=== PATIENT | female | born 2000 | race Caucasian/White ===

== ENCOUNTER 2020-05-22 20:01 | Inpatient (IN) | payer OTHER, MEDICAID ==
[~2020-05-22] VITALS: Ht 167.6 cm; Wt 69.9 kg
--- NOTE | ~2020-05-22 | CON ---
[address] [address] CONSULTATION Name: RAINER MENDES Room: [address] IN M.R.#: [id number] Admission: 05/22/20 Attend Phys: Shana Chow MD Discharge: Date of : 98 Report #: [id number] THIS REPORT FOR: cc: Frieda Black DNP, Mary E. DNP ~ Solo Kumar MD DATE OF SERVICE: 05/24/2020 REQUESTING PHYSICIAN: Dr. Morris. REASON FOR CONSULTATION: Rhabdomyolysis. HISTORY OF PRESENT ILLNESS: The patient is a 20-year-old female with medical history significant for alcoholism for the last year, depression, who presents to the hospital after some alcohol binge when she had lost short-term memory, was not sure what was going on. She was all covered in bruises, was found to be in acute kidney injury and rhabdomyolysis. MEDICATIONS: Prior to admission include lithium, Wellbutrin and Prozac. SOCIAL HISTORY: Positive for alcoholism. FAMILY HISTORY: Noncontributory. PAST MEDICAL HISTORY: As I mentioned earlier. REVIEW OF SYSTEMS: Review of systems is positive for ____ pain all over the body and depression. PHYSICAL EXAMINATION: GENERAL: She is awake, alert, oriented. VITAL SIGNS: Blood pressure 116/71, heart rate 82, afebrile. HEENT: Pupils are round. NECK: Supple. LUNGS: Clear. CARDIOVASCULAR: Regular rate. ABDOMEN: Soft. EXTREMITIES: Lower extremities, no edema. SKIN: Skin is covered, she has multiple bruises all over her body. LABORATORY DATA: Significant for creatinine of 1.3 down to 0.7 today. CPK was more than 6000. She had elevated AST and ALT. ASSESSMENT: [facility] [address] [place] [address] CONSULTATION Name: RAINER MENDES Room: [address] IN [facility]#: [id number] Admission: 05/22/20 Attend Phys: Shana Chow MD Discharge: Date of : 98 Report #: [id number] 1. Severe rhabdomyolysis, likely due to mechanical trauma. The patient now tells me that she probably fell several times from the stairs while she was visiting her friend. She was drinking alcohol at that time. 2. Acute kidney injury due to rhabdomyolysis. 3. Alcoholism. PLAN: Continue IV fluids. CPK, we will monitor her on daily basis. Room Designer her on necessity of stopping drinking alcohol. By: [id number] [id number] Kumar MD /nt
--- NOTE | ~2020-05-22 | CON ---
[address] [address] CONSULTATION Name: RAINER MENDES Room: [address] IN M.R.#: [id number] Admission: 05/22/20 Attend Phys: Shana Chow MD Discharge: Date of : 98 Report #: [id number] THIS REPORT FOR: cc: Frieda Black DNP, Mary E. DNP ~ Mary Fritz MD DATE OF SERVICE: 05/23/2020 REQUESTING PHYSICIAN: ANGEL Trinidad HISTORY OF PRESENT ILLNESS: This is a 20-year-old female who was brought to hospital after she had reported to her mom that she feels dizzy and not feeling good. She apparently was away, so the mom does not know all the history. When she presented to the mom, she had bruises in her face, lips and lower extremities. She had reported to the mother that she had felt from the steps. On presentation, she appears to have rhabdomyolysis. She also has transaminitis with AST and ALT in range of 1800 and 600. The patient's mother reports that she has been drinking alcohol. Also, she has bipolar mood disorder for which she takes lithium. Mother fears that she may have taken some overdose of lithium. PAST MEDICAL HISTORY: Significant for history of bipolar mood disorder and asthma. ALLERGIES: SIGNIFICANT FOR LAMICTAL. MEDICATIONS: Please refer to MAR. SOCIAL HISTORY: The patient's mother reports that she uses marijuana and drinks alcohol. The patient also has bipolar mood disorder and is on lithium. FAMILY HISTORY: Noncontributory. PHYSICAL EXAMINATION: NEUROLOGIC: The patient is sleepy and responds to painful stimuli. ABDOMEN: Soft, nontender and nondistended. LUNGS: Clear. CARDIOVASCULAR: Regular. LABORATORY DATA: Revealed sodium of 135, potassium 4.5, BUN is 31, creatinine is 1.3 and glucose is 100. AST is 1888, ALT is 666 and alkaline phosphatase is 77. Magnesium 2.8, calcium 9.2, total bilirubin is 1.1 and albumin [place] 4[place] [address] CONSULTATION Name: RAINER MENDES Room: [address] IN [facility].#: [id number] Admission: 05/22/20 Attend Phys: Shana Chow MD Discharge: Date of : 98 Report #: [id number] is 1.0. WBC is 14.9 with hemoglobin of 14.1 and platelet of 238. IMAGING: CT of the head was obtained. This appeared normal. ASSESSMENT AND PLAN: The patient with history of bipolar mood disorder, who presents with dizziness and feeling poorly. She appeared as she had a fall as she had reported that to the mother. She has multiple bruises in her chin, lips and lower extremities. It is quite possible that she may have been down for a while after her fall and this may have caused her rhabdomyolysis. Her transaminitis is most probably associated with combination of shock liver and rhabdomyolysis. We will order a GGT and continue following up hepatic function. At this time, all hepatic function is completely intact. I believe the patient's prognosis in reference to her liver issues is very good. Meanwhile, she should be well hydrated and monitored. We will make further recommendation based on laboratory finding. By: 1002 [id number] Fritz MD /nt
[~2020-05-22 20:01] MED LIST: AUGMENTIN 875-1 EACH PO; CORTISPORIN OTI10 ML OTIC; LATUDA40 MG PO; LITHIUM CARBON150 MG PO; PROZAC20 MG PO; REGLAN 5 MG TAB5 MG PO; RITALIN10 MG PO
[2020-05-22 20:13] VITALS: BP 127/77
[2020-05-22] MEDS ORDERED: WELLBUTRIN 100100 MG PO (20:20)
[2020-05-22 20:31] LABS: ICTOTEST (BILI CONFIRMATORY) Negative (Negative); URINE BILIRUBIN 1+ (Negative); URINE BLOOD 3+ (Negative); URINE CLARITY HAZY; URINE COLOR YELLOW; URINE GLUCOSE-RANDOM NEGATIVE (Negative); URINE KETONES 1+ (Negative); URINE LEUKOCYTES NEGATIVE (Negative); URINE NITRITE NEGATIVE (Negative); URINE PROTEIN 2+ (Negative); URINE SPECIFIC GRAVITY >= 1.030 (1.005-1.030); URINE UROBILINOGEN 0.2 E.U./dl (0.2-1.0)
[2020-05-22 20:39] LABS: AMP/METHAMP Negative (Negative); BARBITURATES Negative (Negative); BENZODIAZEPINES Negative (Negative); COCAINE Negative (Negative); METHADONE Negative (Negative); OPIATES Negative (Negative); PCP Negative (Negative); THC POSITIVE (Negative)
[2020-05-22 20:45] LABS: SQUAMOUS >10 Many /LPF (0-3)
[2020-05-22 20:46] LABS: URINE RBC 0-2 Rare /HPF (0-2); URINE WBC 0-5 Rare /HPF (0-5)
[2020-05-22 20:47] LABS: AMORPHOUS URATES Few /LPF (None Seen); BACTERIA 1-9 Few /HPF (None Seen); CASTS None Seen /LPF (None Seen)
[2020-05-22 20:53] LABS: HEMATOCRIT 42.5 % (37.0-47.0); HEMOGLOBIN 14.1 gm/dL (12.0-15.0); MCH 28.5 pg (26.0-34.0); MCHC 33.1 g/dL (28.0-37.0); MCV 86.1 fL (80.0-100.0); MPV 8.3 fl. (7.2-11.1); RBC 4.94 mil/uL (4.20-5.00); RDW-CV 14.1 % (10.5-14.5); WBC 15.2 thou/uL (4.0-11.0)
[2020-05-22 21:06] LABS: CALCIUM 9.2 mg/dL (8.5-10.1); CREATININE 1.3 mg/dL (0.6-1.3); POTASSIUM 4.5 mmol/L (3.5-5.1)
[2020-05-22 21:18] LABS: ACETAMINOPHEN < 2 ug/mL (10-30); ALCOHOL < 10 mg/dL (<10); SALICYLATE < 2.8 mg/dL (2.8-20.0)
[2020-05-22 21:22] LABS: ALBUMIN 4.1 g/dL (3.4-5.0); TOTAL BILIRUBIN 1.1 mg/dL (<0.1-1.0)
[2020-05-22 21:50] LABS: INFLUENZA A ANTIGEN Negative (Negative); INFLUENZA B ANTIGEN Negative (Negative)
[2020-05-22 22:25] LABS: HEMATOCRIT 43.3 % (37.0-47.0); HEMOGLOBIN 14.1 gm/dL (12.0-15.0); MCH 28.4 pg (26.0-34.0); MCHC 32.6 g/dL (28.0-37.0); NUCLEATED RBCS 0 /100WBC; PLATELET COUNT* 238 thou/uL (150-400); RBC 4.97 mil/uL (4.20-5.00); RDW-CV 14.3 % (10.5-14.5); WBC 14.9 thou/uL (4.0-11.0)
[2020-05-22 22:43] LABS: APTT 26.5 Seconds (25.0-31.3); PROTIME 10.4 Seconds (9.20-11.50)
[2020-05-22 23:27] LABS: ABSOLUTE LYMPHOCYTES 0.6 thou/uL (0.8-5.3); ABSOLUTE MONOCYTES 0.6 thou/uL (0.0-1.2); ABSOLUTE NEUTROPHILS 13.7 thou/uL (1.6-8.1); PLATELET ESTIMATE ADEQUATE
[2020-05-22 23:37] LABS: MAGNESIUM 2.8 mg/dL (1.8-2.4); PHOSPHORUS* 2.8 mg/dL (2.5-4.9); URIC ACID* 7.3 mg/dL (2.6-7.2)
[2020-05-23] VITALS (19 sets, daily range): BP systolic 111–132; BP diastolic 58–78
--- NOTE | 2020-05-23 07:47 | NUR ---
4352 ASSUMED CARE OF PATIENT. PLEASE SEE DOCUMENTED ASSESSMENT AND CIWA SCREENING. ASSISTED TO BSC FOR VOID OF BLOOD TINGED YELLOW URINE. PT STATES SHE HAD BEEN HAVING HER MENSES. PT DENIES PAIN
--- NOTE | 2020-05-23 08:20 | NUR ---
PATIENT STATES SHE HAS HAD HER FLUVACCINE THIS SEASON. ABLE TO SIGN FALL AGREEMENT.
[2020-05-23 11:33] LABS: CREATININE 0.9 mg/dL (0.6-1.3)
--- NOTE | 2020-05-23 18:18 | NUR ---
PT PROGRESSING TOWARDS GOALS. SAFETY MAINTAINED.HAS BEEN FEBRILE TODAY. PLACED ARCINIEGA ORDERED BUT PT C/O PAIN AND WANTED IT OUT. TAMPON REMOVED FROM VAGINA THAT PATIENT WAS NOT SURE HOW LONG IT HAD BEEN IN PLACE. APPETITE IMPROVING. CONSULTS NOTIFIED. CT OF ABDOMEN PENDING. MOTHER HAS BEEN PRESENT MOST OF DAY. GIVEN ATIVAN PO X 1 PER PT REQUEST, NOT FOR CIWA SCORE.
[2020-05-23 18:20] LABS: HEMATOCRIT 35.5 % (37.0-47.0); MCH 28.2 pg (26.0-34.0); MCHC 32.1 g/dL (28.0-37.0); MCV 87.7 fL (80.0-100.0); MPV 8.2 fl. (7.2-11.1); RBC 4.05 mil/uL (4.20-5.00)
[2020-05-23 18:30] LABS: HEMOGLOBIN 11.4 gm/dL (12.0-15.0)
[2020-05-23 18:38] LABS: ALBUMIN 2.6 g/dL (3.4-5.0); CREATININE 1.1 mg/dL (0.6-1.3); MAGNESIUM 2.1 mg/dL (1.8-2.4); PHOSPHORUS* 2.2 mg/dL (2.5-4.9); POTASSIUM 3.3 mmol/L (3.5-5.1); TOTAL BILIRUBIN 0.3 mg/dL (<0.1-1.0); TOTAL PROTEIN 5.7 g/dL (6.4-8.2)
[2020-05-23 22:00] LABS: CALCIUM 7.8 mg/dL (8.5-10.1); CREATININE 0.8 mg/dL (0.6-1.3); POTASSIUM 3.6 mmol/L (3.5-5.1)
[2020-05-24] VITALS (20 sets, daily range): BP systolic 109–138; BP diastolic 61–81
[2020-05-24 03:47] LABS: HEMATOCRIT 33.3 % (37.0-47.0); MCH 28.8 pg (26.0-34.0); MCHC 33.1 g/dL (28.0-37.0); MCV 86.8 fL (80.0-100.0); MPV 8.5 fl. (7.2-11.1); RBC 3.84 mil/uL (4.20-5.00); RDW-CV 13.8 % (10.5-14.5)
[2020-05-24 04:00] LABS: PROTIME 10.4 Seconds (9.20-11.50)
[2020-05-24 04:08] LABS: ALBUMIN 2.3 g/dL (3.4-5.0); CALCIUM 7.4 mg/dL (8.5-10.1); CREATININE 0.7 mg/dL (0.6-1.3); MAGNESIUM 1.8 mg/dL (1.8-2.4); POTASSIUM 3.7 mmol/L (3.5-5.1); TOTAL BILIRUBIN 0.3 mg/dL (<0.1-1.0); TOTAL PROTEIN 5.4 g/dL (6.4-8.2)
--- NOTE | 2020-05-24 09:54 | NUR ---
5226 ASSUMED CARE OF PATIENT. PLEASE SEE DOCUMENTED ASSESSMENT. PT IS NPO FOR ABDOMINAL ULTRASOUND. ASSISTED TO COMMODE AND BATHED.
[2020-05-24 10:13] LABS: ALBUMIN 2.4 g/dL (3.4-5.0); DIRECT BILIRUBIN 0.1 mg/dL (<0.1-0.3); TOTAL BILIRUBIN 0.3 mg/dL (<0.1-1.0)
--- NOTE | 2020-05-24 11:18 | CON ---
[address] [address] CONSULTATION Name: RAINER MENDES Room: [address] IN M.R.#: [id number] Admission: 05/22/20 Attend Phys: Shana Chow MD Discharge: Date of : 98 Report #: [id number] THIS REPORT FOR: cc: Frieda Black DNP, Mary E. DNP ~ Andrade Tam MD [facility] DATE OF SERVICE: 05/24/2020 CARDIOLOGY CONSULTATION HISTORY OF PRESENT ILLNESS: The patient is a 20-year-old white female who I was asked to see in the hospital today because of abnormal troponin. The patient has no previous history of heart disease. She stays fairly active. She has a history of manic depressive illness and has been hospitalized in the past. Recently, she has been falling or losing her balance. She complains of lightheadedness. Her parents finally brought her to the Emergency Room 2 days ago. She has been confused. She has had a previous suicide attempt in the past. The family finally brought her to the Emergency Room for further evaluation and treatment. She is noted to have an abnormal troponin. I was asked to see her for further evaluation and treatment. She denied any seizure activity. Denied any vomiting, diarrhea, or blood in her stool. PAST MEDICAL HISTORY: She is a G0, last menstrual period is last week. She has an IUD in place. No history of hypertension, diabetes, hyperlipidemia. MEDICATIONS: Include Prozac, Wellbutrin. ALLERGIES: She has no known drug allergies. FAMILY HISTORY: Negative for heart disease. SOCIAL HISTORY: She is single, lives with her parents in [place]. 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 She does abuse alcohol. Smokes marijuana occasionally. REVIEW OF SYSTEMS: No history of stroke. She has a history of asthma, uses inhaler. No history of liver disease, kidney disease, bleeding, chronic skin condition. She has manic depressive illness. She has been hospitalized in the past. PHYSICAL EXAMINATION: GENERAL: Reveals a young white female, lying in bed. She appeared in no distress. VITAL SIGNS: She had a blood pressure 110/68, pulse is 90. [place] [address] CONSULTATION Name: RAINER MENDES Room: [address]#: [id number] Admission: 05/22/20 Attend Phys: Shana Chow MD Discharge: Date of : 98 Report #: [id number] HEENT: She was anicteric. Conjunctivae pink. Mucous membranes moist. NECK: Veins nondistended. Neck supple. CHEST: Clear to auscultation. CARDIOVASCULAR: Regular rate and rhythm without murmur. ABDOMEN: Soft. EXTREMITIES: Had no edema. Dorsalis pedis pulse 3+ bilaterally. SKIN: Cool and dry. NEUROLOGIC: Nonfocal. RADIOLOGICAL DATA: Her ECG on admission showed a sinus rhythm, no ST or T-wave change noted. Her workup in the Emergency Room, she had a portable chest x-ray that showed normal heart size, clear lung saldana. She had a CT scan of the head that was unremarkable. LABORATORY WORK: Sodium 141, creatinine 0.7, SGOT 679, SGPT 360, bilirubin 2.3. Troponin 0.15. TSH 0.9. Her urine drug screen positive for marijuana. White blood cell count 10.0, hematocrit 33. Her COVID antigen stat test was negative. Urinalysis was negative for leukocytes. IMPRESSION AND RECOMMENDATIONS: 1. Borderline troponin. No evidence of acute myocardial infarction. Recommend no further cardiac evaluation. 2. Manic depressive illness. 3. Falling. Possibly related to alcohol. 4. History of alcohol abuse. Recommend no cardiac evaluation. Cardiac status appears stable. I will sign off at this time. <ELECTRONICALLY SIGNED> By: Andrade Tam MD, FACC 05/24/20 1118 0843 [id number] Tam MD, FACC /nt
--- NOTE | 2020-05-24 17:18 | NUR ---
PATIENT HAS MADE SOME PROGRESS WITH HER RHABDOMYOLYSIS BUT HER MENTAL STATUS HAS DETERIORATED. NOW TELE STATUS WITH SITTER FOR SI PRECAUTIONS. PATIENT PULLED OUT IV'S TODAY AFTER MOTHER LEFT. ABLE TO RESTART IV WITH HER CONSENT. PT IS ADAMANT THAT SHE WILL NOT GO TO INPATIENT PSYCH OR ALCOHOL REHAB. AFFIDAVIT DONE BY MOTHER WHICH IS ON PT CHART.AFEBRILE.
--- NOTE | 2020-05-24 18:48 | NUR ---
PATIENT TO MOVE TO ROOM 207. PATIENT'S MOTHER NOTIFIED OF PATIENT MOVING TO ROOM 207.
--- NOTE | 2020-05-24 21:47 | NUR ---
CALLED TO PT'S ROOM PER PT REQUEST. PT DEMANDING TO USE TO PHONE, PT INFORMED IT IS AGAIST POLICY FOR PT TO BE ALLOWED TO USE THE PHONE AFTER SPEAKING WITH THE CHARGE NURSE. PT HAD PULLED OUT HER SALINE LOCK, AND REFUSED TO ALLOW RN TO BANDADGE IV SITE. SMALL AMOUNT OF BLOOD PRESENT, DOES NOT APPEAR TO BE ACTIVLEY BLEEDING. REINFORCMENT OF POLICIES SURROUNDING VISITATION, PHONE USE, AND THE POSSIBLE IMPLICATIONS OF ESCILATING BEHAVIOR. PT RESPONDED WITH, "YOU'RE A ABAD." OFFICER MICAH IN THE ROOM DURING OUR CONVERSATION, AND WAS ABLE TO DE-ESCILATE PT'S AFFECT BY REINFORCING POLICY TEACHING FOR PT'S IN HER STATUS. SPOKE WITH CHARGE NURSE ABOUT CONTENT OF OUR CONVERSATION. PT AGREED TO FOLLOW THE POLICY. INSTRUCTED CHARGE NURSE TO NOTIFY THIS SATELLITE SPECIALIST IF FURTHER PROBLEMS DEVELOPED.
[2020-05-25] VITALS: BP 128/71
[2020-05-25 04:11] LABS: HEMATOCRIT 33.4 % (37.0-47.0); HEMOGLOBIN 11.1 gm/dL (12.0-15.0); MCH 28.6 pg (26.0-34.0); MCHC 33.1 g/dL (28.0-37.0); MCV 86.5 fL (80.0-100.0); MPV 8.3 fl. (7.2-11.1); RBC 3.86 mil/uL (4.20-5.00); WBC 10.1 thou/uL (4.0-11.0)
[2020-05-25 04:54] LABS: ALBUMIN 2.3 g/dL (3.4-5.0); CALCIUM 7.8 mg/dL (8.5-10.1); CREATININE 0.7 mg/dL (0.6-1.3); MAGNESIUM 1.4 mg/dL (1.8-2.4); POTASSIUM 3.3 mmol/L (3.5-5.1); TOTAL BILIRUBIN 0.3 mg/dL (<0.1-1.0); TOTAL PROTEIN 5.5 g/dL (6.4-8.2)
[2020-05-25 05:33] VITALS: BP 138/77
--- NOTE | 2020-05-25 06:59 | NUR ---
ASSESSMENT DOCUMENTED. MEDS GIVEN PER E-MAR. IV PATENT, FLUIDS INFUSING. PT BECAME VERY AGGITATED THIS SHIFT. STATING "I AM MY OWN PERSON AND I CAN DO WHAT I WANT, I DO NOT WANT THIS SHIT ON ME" PT STARTED PUNCHING AND KICKING AT STAFF, PULLED OFF TELE MONITOR AND PULLED IV. NOTIFED, ORDERS RECIEVED. PT AGREED TO TAKE MEDICATIONS, NEW IV STARTED WHEN PT CALMED DOWN. PT PLEASANT REST OF SHIFT, STATING SHE JUST FEELS "CONFUSED" THIS AM. NO REPORTS OF PAIN. SITTER REMAINED AT BEDSIDE. WILL CONTINUE WITH PLAN OF CARE.
--- NOTE | 2020-05-25 07:20 | NUR ---
CHANGE OF SHIFT REPORT GIVEN PATIENT SEEN AT BEDSIDE, IN BED ASLEEP 1:1IN ROOM ASSUMED PATIENT CARE
[2020-05-25 08:00] VITALS: BP 127/71
--- NOTE | 2020-05-25 14:19 | 2DMMODE ---
[place] [address] 2 D/M-MODE ECHOCARDIOGRAM Name: RAINER MENDES Room: [address] IN [facility]#: [id number] Admission: 05/22/20 Attend Phys: Shana Chow, Discharge: Date of : 98 Date of Service: 05/25/20 1419 Report #: [id number] THIS REPORT FOR: cc: Frieda Black DNP, Mary E. DNP Holkins, John M. MD [facility] ~ APPROVED REPORT Study performed: 05/25/2020 09:34:56 EXAM: Comprehensive 2D, Doppler, and color-flow Echocardiogram Patient Location: In-Patient Room #: [facility] Status: routine BSA: 1.79 HR: 73 bpm BP: 138/77 mmHg Rhythm: NSR Other Information Study Quality: Good Indications Elevated Troponin 2D Dimensions IVSd: 10.87 (7-11mm) LVOT Diam: 22.15 (18-24mm) LVDd: 48.94 mm PWd: 10.31 (7-11mm) Ascending Ao: 26.66 (22-36mm) LVDs: 30.50 (25-40mm) Aortic Root: 29.67 mm Volumes Left Atrial Volume (Systole) LA ESV Index: 23.10 mL/m2 Aortic Valve AoV Peak Aidan.: 1.24 m/s AO Peak Gr.: 6.16 mmHg LVOT Max P.54 mmHg AO Mean Gr.: 3.80 mmHg LVOT Mean P.65 mmHg LVOT Max V: 1.18 m/s AO V2 VTI: 23.48 cm LVOT Mean V: 0.75 m/s TIKA (VTI): 3.58 cm2 LVOT V1 VTI: 21.79 [place] [address] 2 D/M-MODE ECHOCARDIOGRAM Name: RAINER MENDES Room: [address] IN ..#: [id number] Admission: 05/22/20 Attend Phys: Shana Chow, Discharge: Date of : 98 Date of Service: 05/25/20 1419 Report #: [id number] Mitral Valve E/A Ratio: 1.60 MV Decel. Time: 236.20 ms MV E Max Aidan.: 0.79 m/s MV PHT: 68.50 ms MVA (PHT): 3.21 cm2 TDI E/Lateral E': 4.16 E/Medial E': 5.27 Medial E' Aidan.: 0.15 m/s Lateral E' Aidan.: 0.19 m/s Pulmonary Valve PV Peak Aidan.: 1.05 m/s PV Peak Gr.: 4.37 mmHg Tricuspid Valve RAP Estimate: 5.00 mmHg TR Peak Gr.: 16.47 mmHg RVSP: 21.00 mmHg PA Pressure: 21.00 mmHg Left Ventricle The left ventricle is normal size. There is normal LV segmental wall motion. There is normal left ventricular wall thickness. Left ventricular systolic function is normal. The left ventricular ejection fraction is within the normal range. LVEF is 60-65%. The left ventricular diastolic function is normal. Right Ventricle The right ventricle is normal size. The right ventricular systolic function is normal. Atria The left atrium size is normal. The right atrium size is normal. Aortic Valve The aortic valve is normal in structure. Trace aortic regurgitation. There is no aortic valvular stenosis. Mitral Valve The mitral valve is normal in structure. Trace mitral regurgitation. No evidence of mitral valve stenosis. Tricuspid Valve The tricuspid valve is normal in structure. Trace tricuspid regurgitation. [place] [address] 2 D/M-MODE ECHOCARDIOGRAM Name: VAUGHNRAINER G Room: [address] IN [facility]#: [id number] Admission: 05/22/20 Attend Phys: Shana Chow, Discharge: Date of : 98 Date of Service: 05/25/20 1419 Report #: [id number] Pulmonic Valve The pulmonary valve is normal in structure. Trace pulmonic regurgitation. Great Vessels The aortic root is normal in size. IVC is normal in size and collapses >50% with inspiration. Pericardium There is no pericardial effusion. <Conclusion> The left ventricle is normal size. There is normal left ventricular wall thickness. Left ventricular systolic function is normal. The left ventricular ejection fraction is within the normal range. LVEF is 60-65%. The left ventricular diastolic function is normal. The right ventricle is normal size. The left atrium size is normal. The aortic valve is normal in structure. Trace aortic regurgitation. There is no aortic valvular stenosis. The mitral valve is normal in structure. The tricuspid valve is normal in structure. IVC is normal in size and collapses >50% with inspiration. There is no pericardial effusion. There is normal LV segmental wall motion. <ELECTRONICALLY SIGNED> By: Hector Nuno MD, FACC 05/25/20 1419 18 141 Hector Nuno MD, FACC /INF
--- NOTE | 2020-05-25 15:44 | NUR ---
CM COMPLETED THE INITIAL ASSESSMENT W/PT'S MOTHER, JODIE, PT WAS SEEMINGLY ASLEEP WHILE EEG WAS BEING ADMINISTERED. PER DOUGIE PER HAS AN HX OF DEPRESS AND HX OF SUICIDE ATTEMPT. PT IS DX W/"BIPLOAR ALONG WITH MANY OTHER THINGS." PT HAD DONE INPT PSYCH STAY AT [facility]/D[facility]. HOWEVER, DOUGIE BELIEVES INPT PSYCH HOSPITAL STAY WERE "MORE HARMFUL THAN HELPFUL." PT MADE "FRIENDS THERE." PT PSYCHIATRIST IS DR. MEGAN GARCIA. PT RECEIVES OUTPT SRVC WITH [employer]. PT HAS AN APPT WITH [employer] TO GET AN APT "IF SHE FOLLOWED UP WITH THEM AND DIDNT LOSE IT." PT'S ADDRESS LEGAL ADDRESS (WHERE SHE RECEIVES MAIL IS HER PARENTS HOME). CM TO CONT TO FOLLOW.
--- NOTE | 2020-05-25 17:28 | EKG ---
[place] [address] ELECTROCARDIOGRAM REPORT Name: RAINER MENDES Room: [address] IN .R.#: [id number] Admission: 05/22/20 Attend Phys: Shana Chow, Discharge: Date of : 98 Date of Service: 05/22/202028 Report #: [id number] THIS REPORT FOR: //name// [facility] ED Test Date: 2020-05-22 Test Time: 20:29:08 Pat Name: RAINER MENDES Department: Room: [facility] Gender: F Operational Communication Chief: DT : 2000 Requested By: Martina Mckinney Order Number: [id number] MD: Hector Nuno Measurements Intervals [place] Rate: 106 P: 66 AL: 126 QRS: 74 QRSD: 86 T: 19 QT: 435 QTc: 578 Interpretive Statements Sinus tachycardia Prolonged QT interval No previous ECG available for comparison Electronically Signed On 05-25-2020 17:28:06 CDT by Hector Nuno [email or web address] <ELECTRONICALLY SIGNED> By: Hector Nuno MD, FAC 05/25/20 1728 28 28 Hector Nuno MD, [facility] /EPI
[2020-05-25 20:00] VITALS: BP 144/87
[2020-05-26 02:06] LABS: HEPATITIS B SURFACE AG Negative (Negative)
[2020-05-26 06:29] LABS: HEMATOCRIT 36.6 % (37.0-47.0); HEMOGLOBIN 12.1 gm/dL (12.0-15.0); MCH 28.5 pg (26.0-34.0); MCHC 33.2 g/dL (28.0-37.0); MCV 85.9 fL (80.0-100.0); MPV 8.1 fl. (7.2-11.1); RBC 4.26 mil/uL (4.20-5.00); RDW-CV 13.9 % (10.5-14.5); WBC 9.4 thou/uL (4.0-11.0)
[2020-05-26 06:53] LABS: CREATININE 0.7 mg/dL (0.6-1.3); MAGNESIUM 1.6 mg/dL (1.8-2.4); POTASSIUM 3.6 mmol/L (3.5-5.1)
[2020-05-26 07:13] LABS: CALCIUM 8.5 mg/dL (8.5-10.1)
--- NOTE | 2020-05-26 15:22 | NUR ---
cm spk w/ pt mother and pt was in and out of sleep, but pt did indicate her choice was [facility] oppose to [facility]. per mother, signature betty ([facility]) is pt's first choice, [facility] is 2nd choice. lin w/heather with [facility], they "are not accepting outside referrals." cm faxed referrals to [facility] (andreina), ; [facility] ([place]) [phone]; and [facility] ([place]) [phone].
--- NOTE | 2020-05-26 19:10 | EEG ---
[address] [address] EEG STUDY REPORT Name: RAINER MENDES Room: [address] IN M.R.#: [id number] Admission: 05/22/20 Attend Phys: Shana Chow MD Discharge: Date of : 98 Report #: [id number] THIS REPORT FOR: cc: Frieda Black DNP, Mary E. DNP ~ Clavin Anderson MD DATE OF SERVICE: 05/25/2020 This patient is being evaluated for altered mental status. EEG was done by placing the electrode by standard 10-20 system of electrode placement. Both referential and sequential montages were used for recording. Background activity in this patient's EEG is about 9 Hz and 20 microvolt. A lot of this EEG was obtained when the patient was asleep and that is associated with bilateral slowing and vertex sharp waves. Photic stimulation is unremarkable. Throughout the record, no active epileptiform activity was noticed. IMPRESSION: This patient's electroencephalogram is intermixed with theta range slowing on both sides. That is a nonspecific finding, which can occur with drowsiness, effect of psychotropic medication, encephalopathy, etc. No active epileptiform activity was noticed. Thank you very much for this referral. <ELECTRONICALLY SIGNED> By: Calvin Anderson MD 05/26/20 1910 1733 [id number] Anderson MD /cira
--- NOTE | 2020-05-26 19:22 | NUR ---
I ASSUMED CARE OF THE PATIENT AT 0700. SHE IS ALERT AND ORIENTED X4 AND IS UP WITH STAND BY ASSIST. BED IS IN THE LOW LOCKED POSITION AND CALL LIGHT IS WITH SITTER. HOURLY ROUNDING IS COMPLETED AND PATIENT NEEDS ARE MET. SHE IS A 1:1 AND CHARTING WAS COMPLETED. PAIN IS DENIED. ROCEPHIN WAS GIVEN FOR THE NEW LAB RESULTS. FLUIDS ARE INFUSING. SI PRECAUTIONS ARE IN PLACE. NEUROLOGY SIGNED OFF, BUT WOULD LIKE TO SEE THE PATIENT OUTPATIENT FOR FOLLOW UP IN 4 WEEKS. MOM WOULD LIKE PATIENT TO GO TO AN INPATIENT FACILITY THAT WILL FOLLOW THROUGH WITH AN OUTPATIENT PROGRAM TO KEEP HER ON TRACK. SHE CURRENTLY ATTENDS '[facility]' IN [place] AND THE MOM WOULD LIKE US TO KEEP THEM IN THE LOOP WHEN WE FIND PLACEMENT. ATIVAN WAS USED TO TAKE THE EDGE OFF WHEN SHE WOULD GET ADGITATED. WILL CONTINUE TO MONITOR. CASE MANAGEMENT IS WORKING ON PLACEMENT. [facility] AND [facility] HAVE DENIED.
[2020-05-26 20:00] VITALS: BP 109/57
[2020-05-27 04:00] VITALS: BP 124/71
[2020-05-27 08:00] VITALS: BP 132/72
[2020-05-27 12:00] VITALS: BP 125/74
--- NOTE | 2020-05-27 12:42 | NUR ---
Repeat tele psych today, parents would like to take Pt home with outpt f/u, await tele psych recommendations. Pt medically stable to dc
--- NOTE | 2020-05-27 15:31 | NUR ---
PT CALM AND COOPERATIVE. SITTER AT BS FOR SAFETY. PT DENIES SI/HI. PSYCH EVAL TODAY. DR MONIQUE TO DC PT HOME WITH PARENTS.
[2020-05-27 16:39] VITALS: BP 125/74
[2020-05-28] MEDS ORDERED: EFFEXOR XR37.5 MG PO (14:32)
[2020-05-28] MEDS ORDERED: NEURONTIN100 MG PO (14:32)
[2020-05-28] MEDS ORDERED: LITHIUM CARBON150 MG PO (14:32)
== END 2020-05-27 17:54 | disposition home or self-care (01) | DRG 871 ==
LOC: M.ERS 20:01 → M.TBA-ER 23:30 → M.ICU 23:30 → M.2W 05-24 20:57
PROVIDERS: Family Medicine; Internal Medicine; Personal Emergency Response Attendant; ADMIT Internal Medicine; ATTEND Internal Medicine
DX: A41.9 Sepsis, unspecified organism (principal); J69.0 Pneumonitis due to inhalation of food and vomit; E43 Unspecified severe protein-calorie malnutrition; N17.9 Acute kidney failure, unspecified; B17.9 Acute viral hepatitis, unspecified; J45.909 Unspecified asthma, uncomplicated; T79.6XXA Traumatic ischemia of muscle, initial encounter; K76.89 Other specified diseases of liver; F31.9 Bipolar disorder, unspecified; G40.909 Epilepsy, unspecified, not intractable, without status epilepticus; F10.20 Alcohol dependence, uncomplicated; D72.829 Elevated white blood cell count, unspecified; R74.01 Elevation of levels of liver transaminase levels; E83.42 Hypomagnesemia; E87.6 Hypokalemia; F42.9 Obsessive-compulsive disorder, unspecified; Z20.822 Contact with and (suspected) exposure to COVID-19; F06.33 Mood disorder due to known physiological condition with manic features; T14.91XA Suicide attempt, initial encounter; Z71.6 Tobacco abuse counseling; Z88.8 Allergy status to other drugs, medicaments and biological substances; Z68.24 Body mass index [BMI] 24.0-24.9, adult; W18.39XA Other fall on same level, initial encounter; Y93.89 Activity, other specified; Y92.89 Other specified places as the place of occurrence of the external cause; Y99.8 Other external cause status

== ENCOUNTER 2020-08-03 15:54 | Emergency (ER) | payer OTHER, MEDICAID ==
[~2020-08-03] VITALS: Ht 167.6 cm; Wt 70.3 kg
[~2020-08-03 15:54] MED LIST changes: +EFFEXOR XR37.5 MG PO; +NEURONTIN100 MG PO; +WELLBUTRIN 100100 MG PO
[2020-08-03] MEDS ORDERED: VRAYLAR4.5 MG PO (16:12)
[2020-08-03 16:30] LABS: ABSOLUTE BASOPHILS 0.1 thou/uL (0.0-0.2); ABSOLUTE EOSINOPHILS 0.1 thou/uL (0.0-0.7); ABSOLUTE MONOCYTES 0.6 thou/uL (0.0-1.2); ABSOLUTE NEUTROPHILS 4.8 thou/uL (1.6-8.1); BASOPHILS 0.7 %; EOSINOPHILS 1.9 %; HEMATOCRIT 38.9 % (37.0-47.0); HEMOGLOBIN 13.1 gm/dL (12.0-15.0); LYMPHOCYTES 26.1 %; MCH 28.8 pg (26.0-34.0); MCHC 33.6 g/dL (28.0-37.0); MCV 85.7 fL (80.0-100.0); MONOCYTES 7.7 %; MPV 8.1 fl. (7.2-11.1); NUCLEATED RBCS 0 /100WBC; PLATELET COUNT* 266 thou/uL (150-400); POLYS 63.6 %; RBC 4.54 mil/uL (4.20-5.00); RDW-CV 13.9 % (10.5-14.5); WBC 7.6 thou/uL (4.0-11.0)
[2020-08-03 16:39] LABS: CREATININE 0.9 mg/dL (0.6-1.3)
[2020-08-03 16:44] LABS: ALBUMIN 3.8 g/dL (3.4-5.0); TOTAL BILIRUBIN 0.2 mg/dL (<0.1-1.0)
[2020-08-03 16:54] LABS: ACETAMINOPHEN < 2 ug/mL (10-30); ALCOHOL < 10 mg/dL (<10); SALICYLATE < 2.8 mg/dL (2.8-20.0)
[2020-08-03 16:59] LABS: URINE BILIRUBIN NEGATIVE (Negative); URINE BLOOD NEGATIVE (Negative); URINE CLARITY CLEAR; URINE COLOR YELLOW; URINE GLUCOSE-RANDOM NEGATIVE (Negative); URINE KETONES TRACE (Negative); URINE LEUKOCYTES-REFLEX NEGATIVE (Negative); URINE NITRITE-REFLEX NEGATIVE (Negative); URINE PROTEIN NEGATIVE (Negative); URINE UROBILINOGEN 0.2 E.U./dl (0.2-1.0)
[2020-08-03 17:08] LABS: AMP/METHAMP Negative (Negative); BARBITURATES Negative (Negative); BENZODIAZEPINES Negative (Negative); COCAINE Negative (Negative); METHADONE Negative (Negative); OPIATES Negative (Negative); PCP Negative (Negative); THC Negative (Negative)
[2020-08-03 18:16] VITALS: BP 114/59
== END 2020-08-03 18:20 | disposition home or self-care (01) ==
LOC: M.ERS 15:54
PROVIDERS: Nurse Practitioner Family
DX: F10.20 Alcohol dependence, uncomplicated (principal); F41.9 Anxiety disorder, unspecified; F31.9 Bipolar disorder, unspecified; J45.909 Unspecified asthma, uncomplicated; Z88.8 Allergy status to other drugs, medicaments and biological substances; Z79.899 Other long term (current) drug therapy; Y90.9 Presence of alcohol in blood, level not specified

== ENCOUNTER 2020-12-17 02:35 | Emergency (ER) | payer OTHER, MEDICAID ==
[~2020-12-17] VITALS: Ht 167.6 cm; Wt 70.3 kg
[~2020-12-17 02:35] MED LIST changes: +VRAYLAR4.5 MG PO
[2020-12-17] MEDS ORDERED: ABILIFY20 MG PO (03:03)
[2020-12-17] MEDS ORDERED: WELLBUTRIN SR150 MG PO (03:04)
[2020-12-17] MEDS ORDERED: SEROQUEL 50 MG50 M1 PO (03:04)
[2020-12-17 03:17] LABS: URINE BILIRUBIN NEGATIVE (Negative); URINE BLOOD 3+ (Negative); URINE COLOR YELLOW; URINE GLUCOSE-RANDOM NEGATIVE (Negative); URINE KETONES NEGATIVE (Negative); URINE PROTEIN 2+ (Negative)
[2020-12-17 03:18] LABS: URINE CLARITY SL HAZY; URINE LEUKOCYTES-REFLEX 3+ (Negative); URINE NITRITE-REFLEX POSITIVE (Negative)
[2020-12-17 03:20] LABS: BACTERIA-REFLEX >30 Many /HPF (None Seen); CASTS None Seen /LPF (None Seen); CRYSTALS None Seen /LPF (None Seen); MUCUS 0-3 Light strn/LPF (None Seen); SQUAMOUS 4-10 Moderate /LPF (0-3); TRANSITIONAL EPITHEL CELL 0-3 Few /LPF (None Seen); URINE RBC >20 Many /HPF (0-2); URINE WBC-REFLEX >25 Many /HPF (0-5); WBC CLUMPS Few (None Seen)
[2020-12-17 04:19] LABS: HEMATOCRIT 39.9 % (37.0-47.0); HEMOGLOBIN 13.7 gm/dL (12.0-15.0); MCH 29.9 pg (26.0-34.0); MCHC 34.2 g/dL (28.0-37.0); MCV 87.4 fL (80.0-100.0); RBC 4.56 mil/uL (4.20-5.00); WBC 5.1 thou/uL (4.0-11.0)
[2020-12-17 04:36] LABS: CALCIUM 8.7 mg/dL (8.5-10.1); POTASSIUM 3.5 mmol/L (3.5-5.1)
[2020-12-17 04:40] LABS: ALBUMIN 3.6 g/dL (3.4-5.0); TOTAL BILIRUBIN 0.3 mg/dL (<0.1-1.0)
[2020-12-17] MEDS ORDERED: VALTREX1000 MG PO (05:01)
[2020-12-17] MEDS ORDERED: TORADOL 10 MG T10 MG PO (05:01)
[2020-12-17] MEDS ORDERED: METRONIDAZOLE500 M4 PO (05:01)
[2020-12-17] MEDS ORDERED: MACROBID 100 M100 M1 PO (05:01)
[2020-12-17 05:24] LABS: AMP/METHAMP Negative (Negative); BARBITURATES Negative (Negative); BENZODIAZEPINES Negative (Negative); COCAINE POSITIVE (Negative); METHADONE Negative (Negative); OPIATES Negative (Negative); PCP Negative (Negative); THC Negative (Negative)
[2020-12-17 05:40] VITALS: BP 138/64
[2020-12-18] MEDS ORDERED: LIDOCAINE VISC100 ML TOP ×2 (17:14→17:29)
== END 2020-12-17 05:40 | disposition home or self-care (01) ==
LOC: M.ERS 02:35
PROVIDERS: Personal Emergency Response Attendant
DX: N39.0 Urinary tract infection, site not specified (principal); N76.0 Acute vaginitis; B96.89 Other specified bacterial agents as the cause of diseases classified elsewhere; A63.8 Other specified predominantly sexually transmitted diseases; B08.1 Molluscum contagiosum; J45.909 Unspecified asthma, uncomplicated; F31.9 Bipolar disorder, unspecified; F41.9 Anxiety disorder, unspecified; Z79.899 Other long term (current) drug therapy; Z88.8 Allergy status to other drugs, medicaments and biological substances

== ENCOUNTER 2020-12-18 16:39 | Emergency (ER) | payer OTHER, MEDICAID ==
[~2020-12-18] VITALS: Ht 167.6 cm; Wt 70.3 kg
[~2020-12-18 16:39] MED LIST changes: +ABILIFY20 MG PO; +MACROBID 100 M100 M1 PO; +METRONIDAZOLE500 M4 PO; +SEROQUEL 50 MG50 M1 PO; +TORADOL 10 MG T10 MG PO; +VALTREX1000 MG PO; +WELLBUTRIN SR150 MG PO
[2020-12-18] MEDS ORDERED: LIDOCAINE VISC100 ML TOP ×3 (17:14→17:29)
[2020-12-18 17:30] VITALS: BP 137/73
== END 2020-12-18 17:32 | disposition home or self-care (01) ==
LOC: M.ERS 16:39
DX: A60.04 Herpesviral vulvovaginitis (principal); J45.909 Unspecified asthma, uncomplicated; F31.9 Bipolar disorder, unspecified; F41.9 Anxiety disorder, unspecified; Z79.2 Long term (current) use of antibiotics; Z79.899 Other long term (current) drug therapy; Z88.8 Allergy status to other drugs, medicaments and biological substances

== ENCOUNTER 2020-12-20 18:52 | Emergency (ER) | payer OTHER, MEDICAID ==
[~2020-12-20] VITALS: Ht 167.6 cm; Wt 70.3 kg
[~2020-12-20 18:52] MED LIST changes: +LIDOCAINE VISC100 ML TOP
[2020-12-20] MEDS ORDERED: DIFLUCAN150 MG PO (19:43)
[2020-12-20] MEDS ORDERED: LIDOCAINE VISC100 ML SWISH&SPIT (19:43)
[2020-12-20 20:05] VITALS: BP 129/74
== END 2020-12-20 20:07 | disposition home or self-care (01) ==
LOC: M.ERS 18:52
DX: R21 Rash and other nonspecific skin eruption (principal); R30.9 Painful micturition, unspecified; R10.2 Pelvic and perineal pain; R30.0 Dysuria; J45.909 Unspecified asthma, uncomplicated; F31.9 Bipolar disorder, unspecified; F41.9 Anxiety disorder, unspecified; Z79.899 Other long term (current) drug therapy; Z79.2 Long term (current) use of antibiotics; Z88.8 Allergy status to other drugs, medicaments and biological substances